=== PATIENT | female | born 1965 | race Caucasian/White ===

== ENCOUNTER 2020-07-29 | Emergency (ER) | payer OTHER ==
[2020-07-29 20:07] LABS: URINE BILIRUBIN - DIPSTICK NEGATIVE (NEGATIVE); URINE BLOOD DIPSTICK MODERATE (NEGATIVE); URINE COLOR YELLOW; URINE GLUCOSE - DIPSTICK NEGATIVE (NEGATIVE); URINE KETONE NEGATIVE (NEGATIVE); URINE LEUK ESTERASE TRACE (NEGATIVE); URINE NITRITE - DIPSTICK POSITIVE (Negative); URINE PROTEIN - DIPSTICK NEGATIVE (NEG-TRACE); URINE UROBILINOGEN - DIPSTICK 0.2 E.U./dL (0.2)
[2020-07-29 20:13] LABS: URINE BACTERIA MANY hpf; URINE RBC 0-2 RBC/hpf (0-5); URINE SQUAMOUS EPITHELIAL CELL FEW EPI/hpf (0-FEW); URINE WBC 0-2 WBC/hpf (0-5)
[2020-07-29 20:36] LABS: IMMATURE GRANULOCYTES 0.2 % (0.0-5.0); MEAN CELL VOLUME 93.2 fL CALC (80.0-100.0); MEAN CORPUSCULAR HGB 30.5 pG CALC (26.0-32.0); MEAN CORPUSCULAR HGB CONC 32.7 g/dL CAL (32.0-36.0); NEUT# 2.99 thou/uL (2.00-7.15); RED BLOOD COUNT 4.59 mill/uL (4.20-5.60); RED CELL DISTRI WIDTH 12.1 % (11.5-15.5)
[2020-07-29 20:37] LABS: HEMATOCRIT 42.8 % (37.0-47.0)
[2020-07-29 20:51] LABS: ALBUMIN 4.6 g/dL (3.2-5.0); ALKALINE PHOSPHATASE 82 u/l (38-126); AMYLASE 53 u/l (30-110); ANION GAP 10 (6-22 (CALC)); BILIRUBIN, TOTAL 0.5 mg/dL (0.0-1.4); BUN 13 mg/dL (7-17); BUN/CREATININE RATIO 20 (12-20 (CALC)); CARBON DIOXIDE 28 mmol/l (22-30); CHLORIDE 104 mmol/l (95-108); CREATININE 0.6 mg/dL (0.5-1.0); GFR > 60 ML/MIN (>=60 (CALC)); GFR FOR AFR.AMER. > 60 ML/MIN (>=60 (CALC)); LIPASE 339 u/l (23-300); POTASSIUM 4.2 mmol/l (3.5-5.1); SGOT/AST 26 u/l (14-36); SODIUM 138 mmol/l (137-146); TOTAL PROTEIN 8.1 g/dL (6.3-8.2)
[2020-07-29] MEDS ORDERED: TRAMADOL HYDROC50 MG PO (21:48)
[2020-07-29] MEDS ORDERED: VOLTAREN - GENE75 MG PO (21:48)
[2020-07-29] MEDS ORDERED: BACTRIM DS1 TAB PO (21:48)
== END 2020-07-29 22:13 | disposition home or self-care (01) | DRG 690 ==
PROVIDERS: Family Medicine
DX: N39.0 Urinary tract infection, site not specified (principal); S39.012A Strain of muscle, fascia and tendon of lower back, initial encounter; F17.210 Nicotine dependence, cigarettes, uncomplicated; B96.20 Unspecified Escherichia coli [E. coli] as the cause of diseases classified elsewhere; X58.XXXA Exposure to other specified factors, initial encounter

== ENCOUNTER 2023-06-04 14:12 | Emergency (ER) | payer OTHER ==
[2023-06-04] VITALS (8 sets, daily range): BP systolic 112–131; BP diastolic 60–110
[~2023-06-04] VITALS: Ht 154.9 cm; Wt 66.2 kg
[~2023-06-04 14:12] MED LIST: BACTRIM DS1 TAB PO; TRAMADOL HYDROC50 MG PO; VOLTAREN - GENE75 MG PO
[2023-06-04] MEDS ORDERED: NAPROXEN 250 MG/TAB PO ONE (18:25)
[2023-06-04] MEDS ORDERED: HYDROcodone 5 MG/Acetaminophen 325 MG/COMBO PO ONE (18:25)
[2023-06-04] MEDS ORDERED: METHOCARBAMOL 500 MG/TAB PO ONE (18:25)
[2023-06-04] MEDS ORDERED: CYCLOBENZAPRINE10 MG PO (19:27)
[2023-06-04] MEDS ORDERED: NAPROXEN500 MG PO (19:27)
== END 2023-06-04 19:48 | disposition home or self-care (01) | DRG 605 ==
LOC: ED 14:12
DX: S00.03XA Contusion of scalp, initial encounter (principal); F17.200 Nicotine dependence, unspecified, uncomplicated; W06.XXXA Fall from bed, initial encounter; Y92.003 Bedroom of unspecified non-institutional (private) residence as the place of occurrence of the external cause

== ENCOUNTER 2024-01-06 16:17 | Emergency (ER) | payer OTHER ==
[2024-01-06] VITALS (10 sets, daily range): BP systolic 108–144; BP diastolic 63–91
[~2024-01-06] VITALS: Ht 154.9 cm; Wt 68.0 kg
[~2024-01-06 16:17] MED LIST changes: +CYCLOBENZAPRINE10 MG PO; +NAPROXEN500 MG PO
[2024-01-06] MEDS ORDERED: KETOROLAC TROMETHAMINE 30 MG/ML SDV IV ONE (16:50)
[2024-01-06] MEDS ORDERED: SODIUM CHLORIDE 0.9% 1,000 ML IV ONE (16:50)
[2024-01-06 17:09] LABS: BASO% 0.4 % (0-3); EOS% 0.7 % (0-8); HEMATOCRIT 40.7 % (37.0-47.0); HEMOGLOBIN 13.6 g/dl (12.0-16.0); IMMATURE GRANULOCYTES 0.3 % (0.0-5.0); LYMPH% 11.5 % (15-41); MEAN CELL VOLUME 93.8 fL CALC (80.0-100.0); MEAN CORPUSCULAR HGB 31.3 pG CALC (26.0-32.0); MEAN CORPUSCULAR HGB CONC 33.4 g/dL CAL (32.0-36.0); MONO% 5.1 % (2-13); NEUT# 9.85 thou/uL (2.00-7.15); RED BLOOD COUNT 4.34 mill/uL (4.20-5.60); RED CELL DISTRI WIDTH 12.3 % (11.5-15.5)
[2024-01-06 17:25] LABS: ALBUMIN 4.5 g/dL (3.2-5.0); BILIRUBIN, TOTAL 0.4 mg/dL (0.02-1.3); CREATININE 0.6 mg/dL (0.5-1.0); POTASSIUM 4.1 mmol/l (3.5-5.1); TOTAL PROTEIN 7.7 g/dL (6.3-8.2)
[2024-01-06 17:31] LABS: URINE BILIRUBIN - DIPSTICK Negative (NEGATIVE); URINE BLOOD DIPSTICK Large (NEGATIVE); URINE GLUCOSE - DIPSTICK Negative (NEGATIVE); URINE KETONE Negative (NEGATIVE); URINE LEUK ESTERASE Negative (NEGATIVE); URINE PROTEIN - DIPSTICK Negative (NEG-TRACE); URINE SPECIFIC GRAVITY 1.015; URINE UROBILINOGEN - DIPSTICK 0.2 E.U./dL (0.2)
[2024-01-06 17:32] LABS: URINE COLOR Yellow; URINE NITRITE - DIPSTICK Positive (Negative)
[2024-01-06 17:39] LABS: URINE WBC 0-2 WBC/hpf (0-5)
[2024-01-06 17:40] LABS: URINE BACTERIA MANY hpf; URINE SQUAMOUS EPITHELIAL CELL RARE EPI/hpf (0-FEW)
[2024-01-06] MEDS ORDERED: ACETAMINOPHEN 500 MG TAB PO ONE (17:45)
[2024-01-06] MEDS ORDERED: cefTRIAXone SODIUM 2 GM in SODIUM CHLORIDE 0.9% 100 ML IV ONE (17:45)
[2024-01-06] MEDS ORDERED: LEVOFLOXACIN750 MG PO (18:50)
[2024-01-07] MEDS ORDERED: TYLENOL # 31 TA1 PO (04:33)
[2024-01-07] MEDS ORDERED: MOTRIN800 MG PO (04:33)
== END 2024-01-06 19:00 | disposition home or self-care (01) | DRG 690 ==
LOC: ED 16:17
PROVIDERS: Family Medicine
DX: N39.0 Urinary tract infection, site not specified (principal); F17.200 Nicotine dependence, unspecified, uncomplicated; Z20.822 Contact with and (suspected) exposure to COVID-19

== ENCOUNTER 2024-01-07 03:47 | Emergency (ER) | payer OTHER ==
[~2024-01-07] VITALS: Ht 154.9 cm; Wt 68.0 kg
[~2024-01-07 03:47] MED LIST changes: +LEVOFLOXACIN750 MG PO
[2024-01-07] MEDS ORDERED: HYDROcodone 5 MG/Acetaminophen 325 MG/COMBO PO ONE (04:05)
[2024-01-07] MEDS ORDERED: KETOROLAC TROMETHAMINE 30 MG/ML SDV IM ONE (04:05)
[2024-01-07] MEDS ORDERED: MOTRIN800 MG PO (04:33)
[2024-01-07] MEDS ORDERED: TYLENOL # 31 TA1 PO (04:33)
[2024-01-07 04:49] VITALS: BP 120/74
== END 2024-01-07 04:49 | disposition home or self-care (01) | DRG 690 ==
LOC: ED 03:47
DX: N39.0 Urinary tract infection, site not specified (principal); I25.2 Old myocardial infarction; F17.210 Nicotine dependence, cigarettes, uncomplicated; Z86.73 Personal history of transient ischemic attack (TIA), and cerebral infarction without residual deficits